=== PATIENT | male | born 1985 | race Caucasian/White ===

== ENCOUNTER 2022-03-27 16:03 | Emergency (ER) | payer MEDICAID ==
[~2022-03-27 16:03] MED LIST: AMOXICILLIN500 MG PO
[2022-03-27 20:35] LABS: BASOPHIL 0.6 % (0-2); EOSINOPHIL 2.2 % (0-5); HCT 45.1 % (42.0-52.0); HGB 15.3 g/dl (13.2-18.0); LYMPHOCYTE 22.8 % (15-48); MCH 30.1 pg (25.0-31.0); MCHC 33.9 g/dL (32.0-36.0); MCV 88.8 fL (78.0-100.0); MONOCYTE 10.7 % (0-12); MPV 10.1 fL (6.0-9.5); NEUTROPHIL 63.1 % (41-80); NRBC 0; PLT 258 K/uL (150-400); RBC 5.08 M/uL (4.70-6.00); RDW 11.9 % (11.5-14.0); WBC 8.8 K/uL (4.0-10.5)
[2022-03-27 20:47] LABS: ALBUMIN 3.4 g/dL (3.4-5.0); BILIRUBIN - TOTAL 0.6 mg/dL (0.2-1.0); BUN/CREAT RATIO (CALC) 10.4 RATIO; CREATININE 1.06 mg/dL (0.67-1.17); GLOBULIN (CALCULATION) 4.3 g/dL; POTASSIUM 3.8 mmol/L (3.5-5.1); TOTAL PROTEIN 7.7 g/dL (6.4-8.2)
[2022-03-27 21:30] LABS: CORONAVIRUS 2019 SARS-COV-2 NEGATIVE (NEGATIVE); INFLUENZA A NAA NEGATIVE (NEGATIVE)
== END 2022-03-28 01:50 | disposition other institution (70) ==
LOC: FER 16:03
PROVIDERS: Internal Medicine
DX: K04.7 Periapical abscess without sinus (principal); K12.2 Cellulitis and abscess of mouth; Z20.822 Contact with and (suspected) exposure to COVID-19; Z28.310 Unvaccinated for COVID-19
CPT/HCPCS: 36415; 70491; 80053; 84145; 85025; J1100; J1170; J2405; J2543; Q9967; U0002